=== PATIENT | female | born 1985 | race Caucasian/White ===

== ENCOUNTER 2016-12-31 21:07 | Emergency (ER) | payer MEDICAID ==
[2016-12-31 21:29] VITALS: TEMP 98.1
--- NOTE | 2016-12-31 21:45 | EDPHY ---
H & P Stated Complaint: Generalized cold pains, back and legs, epigastric pains. Time Seen by Provider: 12/31/16 21:24 HPI/ROS: CHIEF COMPLAINT: Back pain, abdominal pain, vomiting, chills HISTORY OF PRESENT ILLNESS: 31-year-old female presents emergency department reporting that 2 days ago she had abrupt onset of lower back pain with radiation into the bilateral buttocks. She began to complain of aching in her lower legs. She developed chills. Symptoms back pain, body aches, and chills were waxing and waning over the next 2 days. She has also developed anterior abdominal discomfort, feeling like she is bloated, vomiting, belching, and ongoing chills. She reports that the vomit and the belching quite follow smelling. She feels like her abdomen is distended. Patient denies any urinary discomfort, hematuria, frequency. She denies cold symptoms, cough, chest pain, shortness of breath, or diarrhea. She denies travel, mosquito bites, tick bites, or rash. She does report intermittent lower extremity swelling, none today. REVIEW OF SYSTEMS: Aside from elements discussed in the HPI, a comprehensive 10-point review of systems was reviewed and is negative. PAST MEDICAL HISTORY: Patient reports a prior history of frequent urinary tract infection, kidney stones, stent placement, renal insufficiency, and endometriosis. She is status post cholecystectomy, appendectomy, hysterectomy, bilateral oophorectomy. SOCIAL HISTORY: Denies smoking, alcohol use, or IV drug use. Denies illicit drug use. VITAL SIGNS Reviewed by me. GENERAL: Well-developed, well-nourished, resting comfortably in no respiratory distress. HEENT: Atraumatic. Eyes: No icterus, no injection. Mouth: moist mucous membranes. No erythema or lesions. Neck: supple with no adenopathy. LUNGS: Clear to auscultation bilaterally, no wheezes, rhonchi or rales. CARDIAC: Mild tachycardia, no rubs, murmurs or gallops. ABDOMEN: Soft, epigastric tenderness, right upper quadrant tenderness, no appreciable distension. No guarding. No rebound. No lower quadrant tenderness. BACK: No CVA tenderness. No midline tenderness palpation over the lumbar spine. No erythema. EXTREMITIES: No trauma. No edema. Range of motion is normal throughout. NEURO: Alert and oriented, grossly nonfocal. SKIN: Slightly cool to the touch. No rash. PSYCHIATRIC: Normal mentation, no agitation. - Personal History LMP (Females 10-55): Hysterectomy Current Tetanus/Diphtheria Vaccine: Unsure Current Tetanus Diphtheria and Acellular Pertussis (TDAP): Unsure - Medical/Surgical History Hx Asthma: Yes Hx Chronic Respiratory Disease: No Hx Diabetes: No Hx Cardiac Disease: No Hx Renal Disease: No Hx Cirrhosis: No Hx Alcoholism: No Hx HIV/AIDS: No Hx Splenectomy or Spleen Trauma: No Other PMH: Pancreatitis, Chronic bronchitis, appy, choleysystectomy, hysterectomy, anxious, depression, ? bipolar. - Social History Smoking Status: Current every day smoker Constitutional: Initial Vital Signs Temperature (C) 36.7 C 12/31/16 21:25 Heart Rate 104 H 12/31/16 21:25 Respiratory Rate 16 12/31/16 21:25 Blood Pressure 105/71 12/31/16 21:25 O2 Sat (%) 97 12/31/16 21:25 O2 Delivery Mode Room Air Allergies/Adverse Reactions: doxycycline Allergy (Severe, Verified 12/31/16 21:29) Anaphylaxis metronidazole [From Flagyl] Allergy (Severe, Verified 12/31/16 21:29) Anaphylaxis TYLENOL #3 Allergy (Uncoded 03/03/13 15:58) Itching Home Medications: Medication Instructions Recorded NK [No Known Home Meds] 12/31/16 Medical Decision Making - Diagnostics Imaging Results: Imaging Impressions Abdomen X-Ray 12/31/16 21:41 Impression: Constipation. No pneumoperitoneum or evidence of bowel obstruction. ED Course/Re-evaluation: Patient initially declined IV placement or laboratory evaluation. She provided a urinalysis and a two view abdomen was ordered. Patient's urinalysis shows no signs of infection. She does have urobilinogen in the urine. Abdominal two view demonstrates significant constipation. I discussed results of the urinalysis and the plain films with the patient. We discussed obtaining blood work for LFTs as well as lipase. We discussed possibility of renal insufficiency, or pancreatitis as a cause of her pain. Patient declined further evaluation and would prefer not to have an IV placed have blood work drawn. Plan was made to discharge the patient was Zofran to use for nausea and instructions regarding magnesium citrate. 11:00 p.m., as the nurse was discharging the patient, she has decided that she would prefer to have further workup. However, as the IV was being placed, the patient changed her mind again decided to leave. She does understand that she may return to the emergency department at any time should her symptoms worsen should she desire further evaluation. Differential Diagnosis: After obtaining the patient's history and performing an examination, differential diagnosis for the patient's presenting complaints was considered included but was not limited to gastritis, pancreatitis, bowel obstruction, constipation, kidney stones, urinary tract infections and other causes. - Data Points Laboratory Results: 12/31/16 21:42 Urine Color YELLOW Urine Appearance CLEAR Urine pH 5.5 (5.0-7.5) Ur Specific [place] 1.025 (1.002-1.030) Urine Protein NEGATIVE (NEGATIVE) Urine Ketones NEGATIVE (NEGATIVE) Urine Blood NEGATIVE (NEGATIVE) Urine Nitrate NEGATIVE (NEGATIVE) Urine Bilirubin POSITIVE H (NEGATIVE) Urine Urobilinogen 2.0 EU H EU (0.2-1.0) Ur Leukocyte Esterase NEGATIVE (NEGATIVE) Urine RBC 0-1 /hpf /hpf (0-3) Urine WBC 0-1 /hpf /hpf (0-3) Ur Epithelial Cells 1+ /lpf /lpf (NONE-1+) Urine Mucus 2+ /lpf H /lpf (NONE-1+) Urine Glucose NEGATIVE (NEGATIVE) Medications Given: Discontinued Medications Ondansetron HCl (Zofran Odt 4 Mg Prepack#2) 1 btl TAKEHOME EDNOW ONE Stop: 12/31/16 22:35 Last Admin: 12/31/16 23:14 Dose: 1 btl Departure - Departure Disposition: Home, Routine, Self-Care Clinical Impression: Constipation Qualifiers: Constipation type: unspecified constipation type Qualified Code(s): K59.00 - Constipation, unspecified Abdominal pain Qualifiers: Abdominal location: epigastric Qualified Code(s): R10.13 - Epigastric pain Back pain Qualifiers: Back pain location: low back pain Chronicity: acute Back pain laterality: midline Sciatica presence: without sciatica Qualified Code(s): M54.5 - Low back pain Condition: Good Instructions: Magnesium Citrate (By mouth), Constipation (ED), High Fiber Diet (ED), Gas and Bloating (ED), Abdominal Pain (ED) Additional Instructions: Please obtain a bottle magnesium citrate. This is available at the grocery store. Please drink half the bottle and then wait 4 hours. If you do not have a significant amount of stool output, you may drink the other half of the bottle. If you have significant amounts of diarrhea, patient your drinking clear fluids so you would not become dehydrated. You have been given a prepack of Zofran. You may use this as needed for any nausea or vomiting. If her symptoms are not improved with the above treatment, please return to the emergency department. If her symptoms are worsening, especially if he develops ongoing fevers, increasing abdominal distension, blood in the stools, fainting, or other concerns, please return to the emergency department or seek care urgently. You understand that your evaluation is somewhat incomplete, as we did not draw blood work to evaluate your liver, your pancreas, or kidneys. You may have a more significant issue which we have not diagnosed because we did not obtain blood work at your request. Referrals: NONE *PRIMARY CARE P,. [Primary Care Provider] - As per Instructions
[2016-12-31 21:49] LABS: COLOR YELLOW; LEUKOCYTE ESTERASE,URINE NEGATIVE (NEGATIVE); NITRITE,URINE NEGATIVE (NEGATIVE); PH,URINE 5.5 (5.0-7.5)
[2016-12-31 22:01] LABS: WBC,URINE 0-1 /hpf (0-3)
[2016-12-31 22:02] LABS: MUCUS 2+ /lpf (NONE-1+); RBC,URINE 0-1 /hpf (0-3)
[2016-12-31] MEDS ORDERED: ONDANSETRON 4MG PREPACK#2 BTL TAKEHOME ONE (22:34)
[2016-12-31 23:24] VITALS: BP 119/72; PULSE 85; RESP 18; O2SAT 95
== END 2016-12-31 23:22 | disposition home or self-care (01) ==
LOC: CED 21:07
DX: K59.00 Constipation, unspecified (principal); F17.200 Nicotine dependence, unspecified, uncomplicated; Z90.49 Acquired absence of other specified parts of digestive tract; Z90.710 Acquired absence of both cervix and uterus
CPT/HCPCS: 74020-PO; 81003-PO; 81015-PO

== ENCOUNTER 2018-04-22 21:02 | Emergency (ER) | payer MEDICAID ==
[2018-04-22] MEDS ORDERED: ONDANSETRON DISINTEGRATING 4 MG TAB PO ONE (21:42)
--- NOTE | 2018-04-22 21:42 | EDPHY ---
H & P Stated Complaint: vomiting/nausea/hurts to breathe x 1 day. Time Seen by Provider: 04/22/18 21:30 HPI/ROS: 32 yo F presents c/o several of her children have been sick with cough and cold , and she just recently came down with cough, productive yellow phlegm, body aches, sore throat and several episodes of vomiitng. She states she was able to take tylenol and motrin just prior to coming to the ED. Review of systems As per HPI General positive fever positive chills no weakness HEENT no eye pain no eye discharge. No eye redness, no sore throat Respiratory positive cough, no shortness of breath Cardiac no chest pain, no peripheral edema GI no abdominal pain, no diarrhea, no constipation, positive nausea positive vomiting no flank pain, no hematuria, no dysuria Musculoskeletal positive myalgias, no joint pain Heme no easy bruising, no easy bleeding Endo no polyuria, no polydipsia Skin no rashes, no pruritus Neuro no syncope, no dizziness, no headaches Psych is no suicidal ideation, no homicidal ideation Source: Patient Exam Limitations: No limitations - Personal History LMP (Females 10-55): Hysterectomy Current Tetanus Diphtheria and Acellular Pertussis (TDAP): Yes - Medical/Surgical History Hx Asthma: Yes Hx Chronic Respiratory Disease: No Hx Diabetes: No Hx Cardiac Disease: No Hx Renal Disease: No Hx Cirrhosis: No Hx Alcoholism: No Hx HIV/AIDS: No Hx Splenectomy or Spleen Trauma: No Other PMH: Pancreatitis, Chronic bronchitis, appy, choleysystectomy, hysterectomy, anxious, depression, ? bipolar, renal stents x 5 - Family History Significant Family History: No pertinent family hx - Social History Smoking Status: Current every day smoker Alcohol Use: Occasionally Drug Use: None - Physical Exam Exam: 32-year-old female alert and oriented no acute distress nontoxic appearance afebrile Atraumatic normocephalic Extraocular muscles intact, anicteric Nares mild yellowish discharge Oropharynx mild erythema no tonsillar swelling no exudate no uvular deviation, tolerating own secretions Neck supple no lymphadenopathy Lungs clear to auscultation bilaterally Heart regular rate and rhythm Abdomen normoactive bowel sounds soft nontender Extremities no cyanosis clubbing or edema Skin no rash Constitutional: Initial Vital Signs Temperature (C) 36.8 C 10/21/18 21:23 Heart Rate 97 04/22/18 21:23 Respiratory Rate 20 04/22/18 21:23 Blood Pressure 119/75 04/22/18 21:23 O2 Sat (%) 95 04/22/18 21:23 O2 Delivery Mode Room Air Allergies/Adverse Reactions: doxycycline Allergy (Severe, Verified 04/22/18 21:22) Anaphylaxis metronidazole [From Flagyl] Allergy (Severe, Verified 04/22/18 21:22) Anaphylaxis acetaminophen [From Vicodin] Allergy (Verified 04/22/18 21:22) hydrocodone [From Vicodin] Allergy (Verified 04/22/18 21:22) TYLENOL #3 Allergy (Uncoded 04/22/18 21:22) Itching Home Medications: Medication Instructions Recorded NK [No Known Home Meds] 12/31/16 Medical Decision Making ED Course/Re-evaluation: Patient seen and evaluated for flu-like symptoms, see HPI Flu swab negative Chest x-ray no infiltrate Patient given sublingual ondansetron, with marked relief in nausea Tolerating p.o. Impression Bronchitis, viral syndrome Plan Discharge home, symptomatic care follow-up with primary care physician Differential Diagnosis: Differential diagnosis considered but not limited to URI, pharyngitis, bronchitis, pneumonia, gastroenteritis, viral syndrome, influenza - Data Points Medications Given: Discontinued Medications Ondansetron HCl (Zofran Odt) 4 mg PO EDNOW ONE Stop: 04/22/18 21:43 Last Admin: 04/22/18 21:46 Dose: 4 mg Ondansetron HCl (Zofran Odt 4 Mg Prepack#2) 1 btl TAKEHOME EDNOW ONE Stop: 04/22/18 22:21 Last Admin: 04/22/18 22:33 Dose: 1 btl Point of Care Test Results: Influenza PCR Flu Nasal Swab Collection Date 04/22/18 Flu Nasal Swab Collection Time 20:47 Influenza A Result Not Detected Influenza B Result Not Detected Departure - Departure Disposition: Home, Routine, Self-Care Clinical Impression: Bronchitis, Viral syndrome Condition: Good Instructions: Ondansetron (By mouth), Acute Bronchitis (ED), Viral Syndrome (ED ) Additional Instructions: Rest Drink plenty of fluids Acetaminophen (also called tylenol) every 4-6 hours as needed for fever or body aches Ibuprofen every 6 hours as needed for fever or pain Referrals: NONE *PRIMARY CARE P,. [Primary Care Provider] - As per Instructions [facility] [Provider Group] - As per Instructions
[2018-04-22] MEDS ORDERED: ONDANSETRON DISINTEGRATING 4 MG TAB ONE (21:43)
[2018-04-22] MEDS ORDERED: ONDANSETRON 4MG PREPACK#2 BTL TAKEHOME ONE (22:20)
[2018-04-22 22:33] VITALS: BP 110/64
== END 2018-04-22 22:33 | disposition home or self-care (01) ==
LOC: CED 21:02
DX: J20.8 Acute bronchitis due to other specified organisms (principal); B34.9 Viral infection, unspecified
CPT/HCPCS: 71046-PO